=== PATIENT | female | born 1970 | race Caucasian/White ===

== ENCOUNTER 2017-09-04 20:57 | Emergency (ER) | payer BC ==
[2017-09-04] MEDS ORDERED: Acetaminophen/Codeine 30-300mg Tablet ONE (21:24)
== END 2017-09-04 21:34 | disposition home or self-care (01) ==
LOC: NAV ERS 20:57
DX: S73.102A Unspecified sprain of left hip, initial encounter (principal); J45.909 Unspecified asthma, uncomplicated; Z79.899 Other long term (current) drug therapy; X50.1XXA Overexertion from prolonged static or awkward postures, initial encounter
CPT/HCPCS: 99282

== ENCOUNTER 2022-08-22 20:56 | Emergency (ER) | payer BC ==
[2022-08-22] MEDS ORDERED: Tetracaine 0.5% PF 4 ML BOT ONE (21:17)
[2022-08-22] MEDS ORDERED: Fluorescein Opthalmic Strip ONE (21:17)
== END 2022-08-22 21:36 | disposition home or self-care (01) ==
LOC: NAV ERS 20:56
DX: S00.211A Abrasion of right eyelid and periocular area, initial encounter (principal); J45.909 Unspecified asthma, uncomplicated; W26.8XXA Contact with other sharp object(s), not elsewhere classified, initial encounter
CPT/HCPCS: 99283